=== PATIENT | male | born 1930 | race Caucasian/White ===

== ENCOUNTER 2018-12-06 05:01 | Inpatient (IN) | payer MEDICARE ==
[~2018-12-06] VITALS: Ht 175.3 cm; Wt 82.0 kg
[2018-12-06] MEDS ORDERED: TRADJENTA5 MG PO (05:21)
[2018-12-06] MEDS ORDERED: POTA8 PO (05:22)
[2018-12-06] MEDS ORDERED: GLIM2 PO (05:22)
[2018-12-06] MEDS ORDERED: ATOR20 PO (05:22)
[2018-12-06] MEDS ORDERED: FURO20 PO (05:23)
[2018-12-06] MEDS ORDERED: ATEN50 PO (05:23)
[2018-12-06] MEDS ORDERED: Aspirin EC81 MG PO (05:25)
[2018-12-06 05:28] LABS: BASOPHILS ABSOLUTE AUTO 0.02 K/mm3 (0.00-0.23); BASOPHILS PERCENT AUTO 0 % (0-2); EOSINOPHILS ABSOLUTE AUTO 0.04 K/mm3 (0.00-0.68); EOSINOPHILS PERCENT AUTO 1 % (0-6); Hematocrit 40.8 % (37.0-53.0); Hemoglobin 12.9 g/dL (13.5-17.5); IMMATURE GRAN ABSOLUTE AUTO 0.04 K/mm3 (0.00-0.10); IMMATURE GRAN PERCENT AUTO 1 % (0-1); LYMPHOCYTES ABSOLUTE AUTO 1.11 K/mm3 (0.84-5.20); LYMPHOCYTES PERCENT AUTO 14 % (21-46); MONOCYTES ABSOLUTE AUTO 1.63 K/mm3 (0.16-1.47); MONOCYTES PERCENT AUTO 20 % (4-13); Mean Corpuscular HGB 33.5 pg (26.0-34.0); Mean Corpuscular HGB Conc 31.6 g/dL (31.5-36.5); Mean Corpuscular Volume 106 fL (80-100); Mean Platelet Volume 11.6 fL (9.1-12.4); NEUTROPHILS ABSOLUTE AUTO 5.41 K/mm3 (1.96-9.15); NEUTROPHILS PERCENT AUTO 66 % (41-73); Platelet Count 110 K/mm3 (150-400); RDW Coefficient Variation 15.3 % (11.7-14.2); RDW Standard Deviation 60.3 fL (35.1-46.3); Red Blood Cell Count 3.85 M/mm3 (4.30-5.90); White Blood Cell Count 8.25 K/mm3 (4.00-11.30)
[2018-12-06 05:46] LABS: Albumin, Blood 3.8 g/dL (3.4-5.0); Albumin/Globulin Ratio 1.2 (0.8-1.8); Bilirubin, Total 0.6 mg/dL (0.1-1.0); Bun/Creatinine Ratio 15.8 (12.0-20.0); Calcium, Blood 9.1 mg/dL (8.5-10.1); Creatinine, Blood 1.9 mg/dL (0.60-1.20); Globulin, Blood 3.3 g/dL (2.2-4.0); Potassium, Blood 5.2 mmol/L (3.5-5.5); Total Protein, Blood 7.1 g/dL (6.4-8.2); Troponin I 0.048 ng/mL (0.000-0.040)
--- NOTE | 2018-12-06 17:50 | NUR ---
SHIFT SUMMARY ED ADMIT THIS AFTERNOON. PATIENT AND FAMILY ORIENTED TO ROOM. PATIENT DENIES PAIN, NAUSEA, OR SHORTNESS OF BREATH. CALL LIGHT IN REACH, WILL CONTINUE TO MONITOR.
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
--- NOTE | 2018-12-07 02:18 | NUR ---
called in to explain how to turn off tv, he allowed me to show him and thanked me
--- NOTE | 2018-12-07 03:17 | NUR ---
up out of bed setting off alarm, insisted that he was going down to see that woman (I had told him that there was a charge nurse) to find out what was going on out in the [place], I asked him to allow me to help him so that he did not fall, he placed his arm on mine and we walked down to the nurses station and talked to the cn, she listened to his story and offered reassurance and suggestions, the pt stated he was happy and tired and asked me to help him back into his bed, so we walked back, as we were walking he said that we were not getting (he was leaning on my arm) and that he guessed that I was right after all, after helping him back into bed and making him comfortable I checked his vitals, he is resting quietly with his eyes closed
[2018-12-07 05:49] LABS: Bun/Creatinine Ratio 19.6 (12.0-20.0); Calcium, Blood 9.3 mg/dL (8.5-10.1); Creatinine, Blood 2.04 mg/dL (0.60-1.20); Potassium, Blood 5.1 mmol/L (3.5-5.5)
--- NOTE | 2018-12-07 06:17 | NUR ---
bed alarm on due to confusion, pt got up and asked where he was and how he got here, assisted to bathroom and back to bed, thanked me for being such a great help, call light in reach, skuds off per pt request, saline locked, air
--- NOTE | 2018-12-07 18:22 | NUR ---
SHIFT SUMMARY NO ACUTE CHANGES. PATIENT DENIES PAIN, NAUSEA, AND SHORTNESS OF BREATH. PATIENT UP IN CHAIR FOR MEALS. POSSIBLE DISCHARGE TOMORROW. CALL LIGHT IN REACH, WILL CONTINUE TO MONITOR.
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
[2018-12-08 06:37] LABS: Bun/Creatinine Ratio 21.6 (12.0-20.0); Calcium, Blood 9.1 mg/dL (8.5-10.1); Creatinine, Blood 1.94 mg/dL (0.60-1.20); Potassium, Blood 4.4 mmol/L (3.5-5.5)
--- NOTE | 2018-12-08 07:20 | NUR ---
alert, orintated to self, sundowners, removed restraints at 0600, call light in reach, saline locked room air
--- NOTE | 2018-12-08 10:42 | NUR ---
Patient agreed for the student to provide care and access chart.
[2018-12-08] MEDS ORDERED: FURO40 PO (11:53)
[2018-12-08] MEDS ORDERED: LISI5 (11:57)
[2018-12-08] MEDS ORDERED: Seroquel50 MG PO (11:58)
--- NOTE | 2018-12-08 13:08 | NUR ---
PT DISCHARGED PT DISCHARGED IN STABLE CONDITION WITH VSS. PT & DAUGHTER EDUCATED ON DC INSTRUCTIONS & CHANGES IN MEDICATIONS. BOTH STATED NO FURTHER QUESTIONS. IV REMOVED & INTACT. PT WHEELED OUT BY ESCORT & DRIVEN HOME BY DAUGHTER.
[2018-12-09] MEDS ORDERED: Cleocin HCl300 MG PO (19:35)
== END 2018-12-08 13:04 | disposition home or self-care (01) | DRG 291 ==
LOC: ER 05:01 → ERHOLD 06:14 → MEDS 15:23 → ENPENDDIS 12-08 11:25 → MEDS 12-08 13:04
PROVIDERS: Emergency Medicine; Hospitalist; ADMIT Hospitalist
DX: I13.0 Hypertensive heart and chronic kidney disease with heart failure and stage 1 through stage 4 chronic kidney disease, or unspecified chronic kidney disease (principal); I50.33 Acute on chronic diastolic (congestive) heart failure; I25.10 Atherosclerotic heart disease of native coronary artery without angina pectoris; E78.5 Hyperlipidemia, unspecified; N18.3 Chronic kidney disease, stage 3 (moderate); E11.22 Type 2 diabetes mellitus with diabetic chronic kidney disease; Z95.1 Presence of aortocoronary bypass graft; Z87.891 Personal history of nicotine dependence; Z79.84 Long term (current) use of oral hypoglycemic drugs; Z79.82 Long term (current) use of aspirin; Z79.899 Other long term (current) drug therapy
CPT/HCPCS: 36415; 71046; 80048; 80053; 82947; 83880; 84484; 85025; 93005; 93010; 93306; 96374; 96375; 96376; 99285-25; J1644; J1940

== ENCOUNTER 2018-12-09 15:27 | Emergency (ER) | payer MEDICARE, BC ==
[~2018-12-09] VITALS: Ht 175.3 cm; Wt 84.4 kg
[~2018-12-09 15:27] MED LIST: ATEN50 PO; ATOR20 PO; Aspirin EC81 MG PO; FURO20 PO; FURO40 PO; GLIM2 PO; LISI5; POTA8 PO; Seroquel50 MG PO; TRADJENTA5 MG PO
[2018-12-09 18:42] LABS: BASOPHILS ABSOLUTE AUTO 0.02 K/mm3 (0.00-0.23); BASOPHILS PERCENT AUTO 0 % (0-2); EOSINOPHILS ABSOLUTE AUTO 0.02 K/mm3 (0.00-0.68); EOSINOPHILS PERCENT AUTO 0 % (0-6); Hematocrit 42.7 % (37.0-53.0); Hemoglobin 13.7 g/dL (13.5-17.5); IMMATURE GRAN ABSOLUTE AUTO 0.03 K/mm3 (0.00-0.10); IMMATURE GRAN PERCENT AUTO 0 % (0-1); LYMPHOCYTES ABSOLUTE AUTO 1.03 K/mm3 (0.84-5.20); LYMPHOCYTES PERCENT AUTO 15 % (21-46); MONOCYTES ABSOLUTE AUTO 1.06 K/mm3 (0.16-1.47); MONOCYTES PERCENT AUTO 16 % (4-13); Mean Corpuscular HGB 32.6 pg (26.0-34.0); Mean Corpuscular HGB Conc 32.1 g/dL (31.5-36.5); Mean Platelet Volume 11.1 fL (9.1-12.4); NEUTROPHILS ABSOLUTE AUTO 4.64 K/mm3 (1.96-9.15); NEUTROPHILS PERCENT AUTO 68 % (41-73); Platelet Count 102 K/mm3 (150-400); RDW Coefficient Variation 15.3 % (11.7-14.2); RDW Standard Deviation 56.5 fL (35.1-46.3)
[2018-12-09 18:53] LABS: Mean Corpuscular Volume 102 fL (80-100)
[2018-12-09 19:00] LABS: Albumin, Blood 3.7 g/dL (3.4-5.0); Albumin/Globulin Ratio 1.1 (0.8-1.8); Bun/Creatinine Ratio 22.8 (12.0-20.0); Calcium, Blood 9.4 mg/dL (8.5-10.1); Creatinine, Blood 2.06 mg/dL (0.60-1.20); Globulin, Blood 3.5 g/dL (2.2-4.0); Potassium, Blood 4.3 mmol/L (3.5-5.5); Total Protein, Blood 7.2 g/dL (6.4-8.2)
[2018-12-09] MEDS ORDERED: Cleocin HCl300 MG PO (19:35)
== END 2018-12-09 20:15 | disposition home or self-care (01) ==
LOC: ER 15:27
PROVIDERS: Physician Assistant
DX: L03.116 Cellulitis of left lower limb (principal); B35.3 Tinea pedis; I50.9 Heart failure, unspecified; Z79.899 Other long term (current) drug therapy; Z79.82 Long term (current) use of aspirin
CPT/HCPCS: 36415; 80053; 83880; 85025; 93971; 99284-25